=== PATIENT | male | born 1960 | race Caucasian/White ===

== ENCOUNTER 2016-08-31 08:51 | Emergency (ER) | payer BC ==
--- NOTE | 2016-09-01 09:22 | ER ---
ADMIT: 08/31/2016 RM/LOC: ER [facility] MR#: [id number] [address] [id number] [place] [id number] [place] [id number] Emergency Room Report SEX: M AGE: 56 : 1960 DATE: 08/31/2016 ADDENDUM: CHIEF COMPLAINT: Left arm tingling. HISTORY OF PRESENT ILLNESS: This is a 56-year-old, who was going out to ride his horse. When coming back in, he felt some left arm numbness and tingling, it is gone now. He denies any chest pain then, denies any chest pain now. Said he actually feels better. He is just a little bit tired. COURSE IN EMERGENCY ROOM: CMP was normal except for glucose of 101, GFR slightly low at 75. His troponin was normal at less than 0.015. CT of his head was negative. Chest x-ray is negative. CBC is normal. EKG shows sinus rhythm with a rate of 81. No ST elevation or depression, over-read by Dr. Uriarte. Again his symptoms have been completely resolved while he has been in the emergency room. I told them it is very important still to follow up with Dr. Holliday regarding his symptoms. He needs to follow up with him to see if he thinks he needs an ultrasound of his carotid or a stress test or any further workup for his symptoms. CLINICAL IMPRESSION: Transient paresthesia to the left arm. ROBERTO Mcgowan / Chun Uriarte MD / teodorol JOB #: [id number] CC: Chun Uriarte MD, Attending Physician
== END 2016-08-31 11:30 | disposition home or self-care (01) ==
LOC: ER 08:51
DX: R20.9 Unspecified disturbances of skin sensation (principal); I10 Essential (primary) hypertension; Z79.899 Other long term (current) drug therapy